=== PATIENT | male | born 1960 | race Caucasian/White ===

== ENCOUNTER 2017-02-05 10:44 | Inpatient (IN) | payer BC ==
[~2017-02-05] VITALS: Ht 177.8 cm; Wt 63.4 kg
--- NOTE | ~2017-02-05 | ER ---
[facility] AGE[facility] 56 Y [address] ROOM: [place] [address] LOCATION: [facility] ADMIT DATE: 02/05/2017 ER/Outpatient Report DISCHARGE DATE: FAMILY PHYSICIAN: Cristobal Simmons MD ATTENDING PHYSICIAN: WALLY HUNT V Time of Arrival: 1040 hours. Time of Evaluation: 1040 hours. CHIEF COMPLAINT: Shortness of breath. HISTORY OF PRESENT ILLNESS: The patient is a 56-year-old male who presents to the emergency department today with chief complaint of shortness of breath. The patient is brought in by EMS. He does have a history of stage IV lung cancer. He does report that he got short of breath last night. He has had fevers at home up to 101 as well as a dry cough. Denies any nausea or vomiting. No diarrhea or constipation. He denies any specific chest pain. No pain currently, 0/10 in severity. PAST MEDICAL HISTORY: 1. Stage IV lung cancer. 2. Coronary artery disease. 3. Moderate pulmonary hypertension. 4. Dyslipidemia. 5. Hypertension. PAST SURGICAL HISTORY: Left lung one thoracotomy. SOCIAL HISTORY: The patient does have a history of tobacco use, quit several years ago. Uses alcohol occasionally. Denies any illicit drug use. ALLERGIES: NO KNOWN DRUG ALLERGIES. MEDICATIONS: Please see list. PRIMARY CARE DOCTOR: Cristobal Simmons MD REVIEW OF SYSTEMS: [facility] AGE: 56 Y [address] ROOM: [place] [address] LOCATION: [facility] ADMIT DATE: 02/05/2017 ER/Outpatient Report DISCHARGE DATE: FAMILY PHYSICIAN: Cristobal Simmons MD ATTENDING PHYSICIAN: WALLY HUNT V All systems are reviewed by myself and are negative with the exception of those discussed in the HPI and past medical history. PHYSICAL EXAMINATION: VITAL SIGNS: Weight 67 kg. Blood pressure 155/95, pulse 128, respiratory rate 34, temperature 99.7, and oxygen saturation 87% on 8 L nebulized treatment. GENERAL: The patient is a 56-year-old male, who appears older than stated age in acute respiratory distress. HEENT: Normocephalic and atraumatic. Pupils are equal, round, and reactive to light. Oropharynx is clear. NECK: Supple. There is no nuchal rigidity. CARDIOVASCULAR: Tachycardic. RESPIRATORY: Lungs with diminished, diffusely with crackles noted bilaterally, and he is in acute respiratory distress. Tachypneic with retractions noted. ABDOMEN: Soft, nontender, and nondistended. No rebound, rigidity, or guarding. MUSCULOSKELETAL: The patient moves all 4 extremities. SKIN: Warm and dry. There are no rashes or lesions noted. LABORATORY DATA AND IMAGING STUDIES: Labs and x-rays are obtained. A one-view chest x-ray is obtained, does show evidence of pulmonary edema on the right. There is complete white out on the left which is consistent with previous study. EKG is obtained. It shows sinus tachycardia with a rate of 123, normal axis, normal interval, nonspecific. CMP is unremarkable except for potassium of 4.3, CO2 of 15, creatinine 1.6, and glucose of 232. Alkaline phosphatase is normal, AST is 43, and ALT is 25. CK is normal, CK-MB is 5.5, and troponin is 4.05. ProBNP is 20,260. Arterial blood gas shows 7.33/31/172/16.3/negative 8.5. Lactate is 3.9. D-dimer is 3.7. CBC: White blood cell count 28.5, hemoglobin 8.3, hematocrit 28.2, platelets are 666,000, and 2% bands. Coags are normal. Procalcitonin is 0.16. IMPRESSION: 1. Acute hypoxic respiratory failure. 2. Dense patchy parenchymal opacity, pneumonia versus congestive heart failure. 3. Sepsis. 4. Elevated glucose. 5. Critical care time of 44 minutes. 6. Initial visit. EMERGENCY DEPARTMENT COURSE: The patient was brought back to the examination room. Seen and evaluated by myself. IV was established. Laboratory analysis and imaging were obtained as PATIENT'S NAME: MAYTE TERRAZAS [facility] AGE: 56 Y [address] ROOM: [address] [place], [place] [address] LOCATION: [facility] ADMIT DATE: 02/05/2017 ER/Outpatient Report DISCHARGE DATE: FAMILY PHYSICIAN: Cristobal Simmons MD ATTENDING PHYSICIAN: WALLY HUNT V described above. The patient was given two DuoNeb breathing treatments en route by EMS. He is immediately placed on BiPAP with 12/5. He is given Solu- Medrol 125 mg IV. He is given 2 DuoNeb breathing treatments in line. The patient did require 13 mg of ketamine IV to assist with tolerating the BiPAP. He was given a gram of Tylenol p.o. He is given a liter of normal saline. Chest x-ray is returned. He is started on Zosyn 4.5 g IV as well as Levaquin 750 mg IV. The patient is reassessed multiple times throughout his ER stay. He is feeling much improved with the BiPAP. He still does have about four- word sentence dyspnea. I did discuss the results with the patient and his daughters who are at the bedside and did recommend admission to the hospital for further evaluation, treatment, and management. The patient is agreeable. I did discuss the case with Dr. Hunt of Hospitalist Service and he has seen and evaluated the patient down here in the emergency department. He has contacted Dr. Moody and discussed the case with Dr. Moody. She has seen and evaluated the patient down here in the emergency department as well. The patient does undergo an echocardiogram down here in the emergency department. With the patient's concern for possible congestive heart failure, careful fluid hydration was required. The patient did require cumulative critical care time of 44 minutes. This did include talking with the patient, talking with family, talking with multiple consults, inserting tests, reviewing tests as well as close monitoring of the patient with severe respiratory distress requiring BiPAP. I also did discuss the case with Dr. Cristobal Simmons, the patient's primary care doctor. He did request Hospitalist admission and will see the patient in the hospital as well. DISPOSITION: The patient is admitted under the care of the Hospitalist Service and Dr. Hunt in fair condition. DO LILLIANA LOZANO/sushilal /[id number] d: 02/05/177 t: 04/01/17 0854, OUTPATIENT REPORT
--- NOTE | ~2017-02-05 | CATH ---
Cardiac Diagnostic + PCI Report Demographics Patient Name NINI Wright Gender Male Date of 1960 Age 56 year(s) Patient Number [id number] Date of Study 02/05/2017 Visit Number [id number] Room Number G62[address] [place] [id number] Ht 177.8 cm Wt 61.5 kg Referring [facility] Primary Physician Physician Heidy HURTADO Performing [facility] Secondary Physician Physician Heidy HURTADO Diagnostic [facility] Assisting Physician Physician Heidy HURTADO Interventional [facility] Physician Outside Sales Executive Physician Heidy HURTADO Findings and Conclusions Diagnostic Findings and Conclusion Diffuse disease of entire ostial/proximal and mid RCA, ostial/prox about 70% and mid 90%. Lad prox/mid stents are patent, there is about 40% focal ISR in the mid stent, ostial LAD with focal 40% stenosis. Ramus lesion is about unchanged (ostial and proximal 80%). Diagnostic Recommendations The RCA is dominant and supplies the largest territory of myocardium PCI RCA and slightly worse compared to prior cath (The ramus lesion is unchanged). His overall prognosis is very poor given metastatic stage IV lung cancer. Given significantly elevated serial troponin from 4----->50, at this time, I will proceed with high risk intervention of RCA. LVEF on echo was 15-20%. Interventional Findings and Conclusion s/p Successful PCI of RCA with 3 AMITA , all overlaps postdilated using stent balloon. Initially 3.0/38 mid RCA stent placed, followed by another 3.0/20 stent in the ostial/proximal portion, several views obtained prior to deploying ostial RCA stent, however, there was no reflux of dye and pressures from guide were significantly damped with engaging the RCA, so I switched to diagnostic JR 4, 5Fr catheter and there was significant damping of pressure wave forms with minimal reflux of dye, so at this time, I placed another 3.0x8 mm promus premier stent proximal to previously placed stent to fully cover the ostium, after PCI of ostium there was good reflux and good waveform of pressures from guide catheter. HELLEN III flow at the end of the procedure. No acute complications in the cardiac slab puller. Interventional Recommendations Patient will be observed overnight. Hydration and followup creatinine. Patient has been instructed to not lift anything more than 5 pounds for 1 week. Aggressive risk factor management. Statin. ASA. Beta Nikunj. Antiplatelet will be given . Dual Anti-platelet therapy. Cardiac diet . Optimization of medical therapy as an inpatient. Will hold off on monique i, given contrast exposure as well as CKD stage III. His overall prognosis is very poor given h/o metastatic lung cancer. Procedure Description The patient was brought to the diagnostic cardiac catheterization-EP laboratory in the fasting, non-sedated state. Informed consent was obtained in the written and verbal form after the risks and benefits were explained. The patient had no further questions and agreed to proceed. The planned puncture-incision site(s) were shaved and prepped with ChloraPrep and draped in the usual sterile manner. Conscious sedation, supplemental oxygen, and pain control medications were delivered by a registered nurse under physician guidance. Surface ECG rhythm, blood pressure measurement, and pulse oximetry were monitored throughout the procedure. Arterial access. The access site was infiltrated with lidocaine. The vessel was entered with the Seldinger technique. A sheath was advanced into the vessel and used for catheter placement. Selective left coronary angiography. A catheter was advanced into the left coronary vessel ostium under Fluoroscopic guidance. Contrast was injected by hand. Images were obtained in multiple projections. Selective right coronary angiography. A catheter was advanced into the right coronary vessel ostium under fluoroscopic guidance. Contrast was injected by hand. Images were obtained in multiple projections. Stent Placement: A guiding catheter was used to intubate the vessel. A 0.14 wire was used to cross the lesion. A Drug Eluting Stent was placed. Post placement angiograms were performed. Arterial artery hemostasis was achieved. The patient was transferred to a regular nursing floor via cart accompanied by a nurse. The patient left the laboratory in stable condition. Diagnostic Cath Status: Emergency Interventional Cath Status: Emergency Procedure Procedure Type Diagnostic procedure:Angiography:, Coronary Angios PCI procedure:Drug Eluting Coronary Stent:, RCA Indications: Abnormal enzymes and NSTEMI. The procedure was explained in detail to the patient. Risks, complications and alternative treatments were reviewed. Written consent was obtained. Medications Reviewed with Patient prior to Procedure. Angiographic Findings Dominance: Right Cardiac Arteries and Lesion Findings LMCA: Normal (0% Stenosis).wnl LAD: Abnormal.mid 40% ISR ostial 40 and distal 50%There is a previous stent on Mid LAD Mid subsection showing focal ISR. There is a previous stent on Prox LAD Proximal subsection. Lesion on Mid LAD: Mid subsection.40% stenosis . LCx: Lesion on Mid CX: Mid subsection.30% stenosis . RCA: Abnormal.prox 70% and mid 90% Lesion on Mid RCA: Mid subsection.90% stenosis 66 mm length reduced to 0%. Pre procedure HELLEN II flow was noted. Post Procedure HELLEN III flow was present. The guidewire cross was successful.A good run off was present.The lesion was diagnosed as a high risk lesion.Culprit lesion. Devices used - Runthrough NS .014 x 180. Number of passes: 1. - Emerge Balloon 2.5 x 20. 2 inflation(s) to a max pressure of: 8 rose. - Promus Premier 3.0 x 38 Stent. 2 inflation(s) to a max pressure of: 12 rose. Lesion on Prox RCA: Proximal subsection.40% stenosis 66 mm length reduced to 0%. Pre procedure HELLEN II flow was noted. The guidewire cross was successful.A poor run off was present.The lesion was diagnosed as a high risk lesion.Culprit lesion. Devices used - Promus Premier 3.0 x 20 Stent. 2 inflation(s) to a max pressure of: 12 rose. - Runthrough NS .014 x 180. Number of passes: 1. - Promus Premier 3.0 x 8 Stent. 2 inflation(s) to a max pressure of: 12 rose. Ramus: Abnormal.80% unchanged from previous cath Coronary Tree Procedure Data Procedure Date Date: 02/05/2017Start: 05:03 PMEnd: 06:04 PM Entry Locations - Retrograde Percutaneous access was performed through the Right Radial artery (Primary location). A 6 Fr sheath was inserted. Hemostasis was successfully obtained using Mechanical Compression. Closure Comments: r band with 14 cc air in band by geovanna. Procedure Medications Order and Administration + + + + + !Time !Medication !Dosage !Route ! + + + + + !02/05/2017 05:00 PM !Versed !1 mg !I.V. ! + + + + + !02/05/2017 05:01 PM !Fentanyl !25 mcg !I.V. ! + + + + + !02/05/2017 05:04 PM !Radial Verapamil !2.5 mg ! ! + + + + + !02/05/2017 05:16 PM !Heparin (ACC_3) !3000 units !I.V. bolus ! + + + + + !02/05/2017 05:17 PM !Fentanyl !25 mcg !I.V. ! + + + + + !02/05/2017 05:19 PM !Heparin (ACC_3) !2000 units !I.V. bolus ! + + + + + !02/05/2017 05:37 PM !Heparin (ACC_3) ! !I.V. drip ! + + + + + !02/05/2017 05:43 PM !Fentanyl !25 mcg !I.V. ! + + + + + Devices Used - A5 Fr. BS JR 4 Diag. Catheterwas used for:Right coronary angiography. - A6 Fr. XB 3.5 Guide Catheterwas used for:Left coronary angiography. - A6 Fr. JR4 Guide Catheterwas used for:RCA Intervention. - A5 Fr. BS JR 4 Diag. Catheterwas used for:Right coronary angiography. - A6 Fr. JR4 Guide Catheterwas used for:RCA Intervention. Contrast Material - Isovue [id number] ml Fluoroscopy Time: Diagnostic: 16:30 minutes. Total: 16:30 minutes. Fluoroscopy Dose: Diagnostic: 1347 mGy. Total: 1347 mGy. Estimated Blood Loss: 20 ml. Additional [facility] PCI Information PCI Indication:Immediate PCI for STEMI. Medical History Allergies - No known allergies. Risk Factors The patient risk factors include:prior PCI on 06/23/2016;previous vascular surgery;physical activity, treated hypercholesterolemia, treated hypertension, family history of premature CAD, last creatinine: 1.6 mg/dl, creatinine clearance: 43.78 ml/min, dyslipidemia, former tobacco use, prior heart failure and prior ND . Admission Data Admission Date: 02/05/2017 Admission Time: 12:57 PM Admit Source: Emergency department Insurance Payors: Private health insurance. Admission Medications + +------+-----+---------+---------+ + + !Medication !Dosage!Times!Last !Last !Administered !Comments ! ! ! !Per !Delivery !Delivery ! ! ! ! ! !Day !Date !Time ! ! ! + +------+-----+---------+---------+ + + !Aspirin (any) ! ! ! ! ! ! ! + +------+-----+---------+---------+ + + !Unfractionated ! ! ! ! ! ! ! !Heparin (any) ! ! ! ! ! ! ! + +------+-----+---------+---------+ + + Clinical Evaluation Leading to Procedure - The patient's CAD presentation was assessed as: Non-STEMI. - The patient's anginal syndrome during the past two weeks was assessed as: Class II according to the [place] Cardiovascular Society Classification System (CCS). Anti-anginal medications were prescribed during the past two weeks. The medication is: Beta Blockers. - The patient has been in a state of heart failure within the past two weeks. - The patient's heart failure status was assessed as NYHA Class IV, with CHF symptoms of BRUNSON. - The reason for the patient's lab rn visit is evaluation of cardiomyopathy and/or evaluation of left ventricular systolic dysfunction. VA LV function assessed . Ejection Fraction - Method: Echocardiography. EF%: 55. LVA Segment Contractility 1 - Normal 3 - Mild 5 - Severe 7 - Dyskinesis hypokinesis hypokinesis 2 - 4 - Moderate 6 - Akinesis 8 - Aneurysm Hypokinesis hypokinesis Snapshots Hemodynamics Condition: Rest O2 Consumption: Estimated: 228.59Heart Rate: 100 bpm Pressures (mmHg) +-----+ + !Site !Pressure ! +-----+ + !AO !99/58 (75) ! +-----+ + !AO !60/36 (45) ! +-----+ + !AO !71/42 (55) ! +-----+ + Shunts Oxygen Values O2 Capacity 112.88 O2 Consumption 228.59 Signatures dtt: HEIDY ZAMBRANO dtd: 02/05/17 1703 Physician Self Edit
--- NOTE | ~2017-02-05 | DS ---
PATIENT'S NAME: MAYTE TERRAZAS [facility] AGE: 56 Y [address] ROOM: [place] [address] LOCATION: [facility] ADMIT DATE: 02/05/2017 Discharge Summary DISCHARGE DATE: 02/09/2017 FAMILY PHYSICIAN: Cristobal Simmons MD ATTENDING PHYSICIAN: Isra Ibrahim V ANTICIPATED DATE OF DISCHARGE: 02/09/2017. PRIMARY DIAGNOSES: For this hospitalization are, 1. Acute systolic congestive heart failure. 2. Acute hypoxic respiratory failure due to the above. 3. Mge-KH-hbfttyb elevation myocardial infarction. CHRONIC DIAGNOSES: 1. Stage IV lung cancer. 2. History of coronary artery disease with prior stenting. PROCEDURES PERFORMED: Cardiac catheterization with placement of drug-eluting stents to the right coronary artery. CONSULTANTS: Who participated in the patient's care are [facility] and [facility]. SUMMARY OF HOSPITALIZATION: This is a 56-year-old male, who presented to the hospital with rapidly progressing dyspnea. The patient has a past medical history of lung cancer and is currently on chemotherapy. On admission, the patient had acute hypoxic respiratory failure with pulmonary edema of both lungs. He required BiPAP support. Initially, his troponin was 4, but subsequently it went up to 50. Echocardiogram showed ejection fraction of 15% to 20%, which was a new finding for this patient. He was taken to the wood preserving plant laborer emergently and was found to have disease of the right coronary artery. He has previously been stented in his LAD and those stents were patent. He received drug-eluting stents to the right coronary artery. He was also placed on broad-spectrum antibiotics as he did have significant leukocytosis and it was questionable if the patient had a concurrent pneumonia as the triggering underlying etiology for his presentation. He was also placed on stress dose steroids. Subsequent to his catheterization, his oxygen requirements decreased, and he felt better. It should be noted that at no point did the patient have any chest pain which was consistent with his prior non-STEMI. He was diuresed and tapered off antibiotics and did very well with physical therapy and occupational therapy. PATIENT'S NAME: MAYTE TERRAZAS [facility] AGE: 56 Y [address] ROOM: [place] [address] LOCATION: [facility] ADMIT DATE: 02/05/2017 Discharge Summary DISCHARGE DATE: 02/09/2017 FAMILY PHYSICIAN: Cristobal Simmons MD ATTENDING PHYSICIAN: Isra Ibrahim V He was fitted for a LifeVest due to his cardiomyopathy. It should be noted that it is unclear if his cardiomyopathy was caused by coronary artery disease, though most likely it was due to his chemotherapy, which has heart failure as a known adverse reaction. Today, the patient feels well, and he will be sent home. He will be continued on his prior cardiac regimen, but we will add lisinopril and Lasix to his regimen at home. It should be noted that the patient was on mild doses of hydrocortisone at home for approximately last month, and he has been on stress dose of hydrocortisone here. We will send him with a gentle prednisone taper and have him follow up with his oncologist, Dr. Kristie Santana for additional steroid decisions. The patient is also to follow up with the primary care provider, Dr. Cristobal Simmons and [facility], all these appointments will be made within 1 week. While the patient initially was treated for pneumonia/sepsis, he was not found to have any infectious focus. DISCHARGE MEDICATIONS: 1. Aspirin 81 mg continued. 2. Atorvastatin 80 mg continued. 3. Furosemide 40 mg daily, new med. 4. Lisinopril 5 mg daily, new med. 5. Magnesium oxide 400 mg continued. 6. Metoprolol 37.5 mg b.i.d. continued. 7. Prednisone 10 mg for 3 days and then 5 mg daily until seen by his oncologist. 8. Dexamethasone with chemotherapy. 9. Continue Florastor for 3 days b.i.d. 10. Brilinta 90 mg twice a day continued. 11. Loperamide continued. 12. Compazine continued. 13. Hydrocortisone discontinued. Time dedicated to this patient's encounter is 35 minutes. MD VU AGUILERA/rylee /[id number] CC: Cristobal Simmons MD PATIENT'S NAME: MAYTE TERRAZAS [facility] AGE: 56 Y [address] ROOM: [place] [address] [facility] ADMIT DATE: 02/05/2017 Discharge Summary DISCHARGE DATE: 02/09/2017 FAMILY PHYSICIAN: Cristobal Simmons MD ATTENDING PHYSICIAN: Isra Ibrahim MD Anuradha Tunuguntla, MD d: 02/10/17 0543 t: 02/25/17 0518, DISCHARGE SUMMARY
--- NOTE | ~2017-02-05 | CON ---
PATIENT'S NAME: JOHN PAUL ALLEN [facility] AGE: 56 Y [address] ROOM: [address] [address] LOCATION: GPCU ADMIT DATE: 02/05/2017 Consultation DISCHARGE DATE: FAMILY PHYSICIAN: Cristobal Simmons MD ATTENDING PHYSICIAN: WALLY HUNT V REFERRING PHYSICIAN: Kristie Santana MD CONSULTATION NOTE REQUESTING PHYSICIAN: This is a consult to Dr. Wally Hunt. 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 HISTORY OF PRESENT ILLNESS: The history of the present illness was obtained from Mr. Allen, who is a good historian; from his hospitalist, Dr. Hunt; from review of the [facility] note of 02/02/2017, which is appended to the chart; from earlier [facility] notes, and the current and old [facility] record. Mr. Allen is currently on day 27 of his third cycle of docetaxel and ramucirumab for locally advanced, stage IV, ldq-faqfe-jfji carcinoma of the lung (squamous cell type). On 02/02/2017, he was seen by Dr. Santana at [facility]. The patient lived alone. He could drive. He was on no formal or informal exercise program. He could do housework. He could vacuum. He had no formal or informal rehabilitation program. 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 The patient reported no dyspnea on exertion walking from the parking lot to [employer] but he developed mild fatigue. He had a mild nonproductive cough. The patient had been placed on steroids and felt his energy level improved by 02/05/2016 though he experienced some insomnia. That evening he developed dyspnea at rest and was unable to sleep the entire night. He sat in a recliner. He was hyperventilating. He reported he developed a fever of 101 degrees (noted in the emergency) room which surprised him. The patient reported to the emergency room and was placed on BiPAP which immediately controlled his symptoms. Mr. Allen was evaluated in the emergency room by Dr. Shadi Torres. The urinalysis was unremarkable. The white count was 28,500 with 67 segs, 2 bands, 23 lymphocytes, and 6 monos. The patient had 1 myelocyte, 1 PATIENT'S NAME: JOHN PAUL ALLEN [facility] AGE: 56 Y [address] ROOM: [address] [place], [place] [address] LOCATION: GPCU ADMIT DATE: 02/05/2017 Consultation DISCHARGE DATE: FAMILY PHYSICIAN: Cristobal Simmons MD ATTENDING PHYSICIAN: WALLY HUNT V metamyelocyte, and 1 nucleated red blood cell. The hemoglobin was 8.3 g/dL, MCV 97, and the platelets were 666,000. At the time of this dictation, the white count has fallen to 15,600, with 89 segs and 5 bands. The hemoglobin is 8.6, the MCV is 90, and the platelets are 234,000. The patient's chemistries were compatible with a jht-XF-ocdiyyvol MT. The CK was 5.5 ng/mL, the troponin was 4.05 ng/mL upon admission. The proBNP was 20,260 pg/mL. The estimated GFR was 45 mL/m. The CK and troponin both murray. The liver function tests were unremarkable except for slightly elevated AST of 68 international units/L. The chest x-ray revealed a dense patchy parenchymal opacity throughout the right lung, new since 06/23/2016 and persistent dense parenchymal opacity in the upper lobe of the left lung with no definite pleural effusion or pneumothorax. A right-sided implanted vascular access device was present. Dr. Moody saw the patient and recommended a coronary artery catheterization study. This was performed on 02/05/2017 and revealed diffuse disease of the entire ostial/proximal and mid right coronary artery, ostial/proximal about 70%, and mid 90%. The LAD proximal/mid stents were patent. There was only 40% focal ISR in the mid stent, ostial LAD with focal 40% stenosis. The ramus lesion was about unchanged. Dr. Moody recommended a PCI of the right coronary artery which was performed using the stent balloon. Dr. Moody initially placed a right coronary artery stent. She placed another PREMIER stent proximally to the previously placed stent and fully cover the ostium, and after that there was good reflux and good waveform. The patient's dyspnea resolved on BiPAP in the emergency room and he is feeling better now. Mr. Allen has a locally advanced rhd-bgvuo-ugwv carcinoma (squamous cell carcinoma) arising in the upper lobe of the left lung. On 02/06/2015, the patient underwent a left thoracotomy, but this was aborted apparently due to pericardial involvement (the procedure was done at the [facility]). On 05/07/2015, a course of nab paclitaxel plus carboplatin in and concurrent radiation was completed. On 05/29/2015, the patient was placed on durvalumab ([id number]) as part of a clinical trial, the "PACIFIC study" of adjuvant checkpoint inhibitors in patients who finished chemotherapy and radiation with curative intent. In February 2016, progressive disease was noted. Starting 04/07/2016, six cycles of gemcitabine and cisplatin and necitumumab were administered, and on 09/02/2016, necitumumab was continued alone until 11/10. On 11/17/2016, docetaxel and ramucirumab were initiated. As noted, the patient was due for the 3rd cycle of docetaxel and ramucirumab on 02/02/2017, but the third cycle was held because of the patient's fatigue. PATIENT'S NAME: JOHN PAUL ALLEN [facility] AGE: 56 Y [address] ROOM: [place] [address] [facility] ADMIT DATE: 02/05/2017 Consultation DISCHARGE DATE: FAMILY PHYSICIAN: Cristobal Simmons MD ATTENDING PHYSICIAN: WALLY HUNT V ACTIVE MEDICAL PROBLEMS, CHRONIC AND DIAGNOSED: 1. Hypercholesterolemia noted in 2004. 2. Essential arterial hypertension noted in 2015, resolved. 3. Tobacco use. The patient smoked 1-1/2 pack per day for 25 years, but has abstained from tobacco since 2001. 4. Atherosclerotic heart disease leading to an xav-BK-lxifrtlzg MT on 06/23/2016. 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 5. Moderate pulmonary hypertension. 6. Adrenal insufficiency. 7. Ischemic cardiomyopathy. The LVEF was 15-20%. There was severe hypokinesis of the anterior, distal, inferior, and lateral wall upon admission. 8. Mild diastolic dysfunction with septal LVH and mild mitral regurgitation. ACUTE MEDICAL ILLNESSES (RESOLVED)PAST SURGERIES, INJURIES: 1. In 2016, non-STEMI. 2. In 2014 - aborted left thoracotomy. 3. Knee arthroscopic. 4. Sinus surgery. MEDICATIONS: Upon admission: 1. ASA 81 mg daily. 2. Atorvastatin 80 mg daily. 3. Dexamethasone around the time of chemotherapy. 4. Hydrocortisone 40 mg p.o. q.a.m. and 10 mg p.o. at bedtime. 5. Loperamide. 6. Magnesium oxide 400 mg daily. 7. Metoprolol 25 mg daily. ADVERSE REACTIONS TO MEDICATIONS, TRANSFUSIONS, ALLERGIES: 1. No known drug allergies. 2. The patient had 2 units of packed red blood cells here. The patient has had packed red blood cell transfusions on three occasions over the past 6 months. TOBACCO: 1-1/2 pack per day for 25 years, abstained since 2001. ALCOHOL: Wine with dinner. A beer or two when watching sports events. He has restricted his alcohol intake now. CAFFEINE: 1 cup of coffee per day. Occasional iced tea. IMMUNIZATIONS: Negative flu, negative Pneumovax, which will be given here. Negative tetanus. Negative varicella zoster virus. PATIENT'S NAME: JOHN PAUL ALLEN [facility] AGE: 56 Y [address] ROOM: [place] [address] [facility] ADMIT DATE: 02/05/2017 Consultation DISCHARGE DATE: FAMILY PHYSICIAN: Cristobal Simmons MD ATTENDING PHYSICIAN: WALLY HUNT V FAMILY HISTORY: Maternal grandfather of a colon or prostate cancer at age 83. SOCIAL HISTORY: The patient was born in [place], [place], but attended high school and was a [employer] in [place], [place] until his ritu year. He returned to [place] and graduated from [employer]. The patient attended [employer] as an undergraduate and law school. 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 He has been employed in [employer] since November 1986. The patient is . He has three daughters one age 22 in [place], [place], and a 19-year-old, who is a student at [employer], and a 16-year-old, who is at [employer]. He is a member of the [employer]. REVIEW OF SYMPTOMS: Negative other than those noted in the history of the present illness. PHYSICAL EXAMINATION: VITAL SIGNS: Pulse 108 and regular, blood pressure 135/85, respiratory rate 18, temperature 97.6, height 70 inches, and weight 61.5 kg (136 pounds). BMI 19.4 kg/m2. GENERAL APPEARANCE: Well-developed, underweight, 56-year-old, male, in no acute distress with no tachypnea. HEENT: Unremarkable. LYMPH NODES: None palpable. NECK: Without JVD or carotid bruit. CHEST: Decreased breath sounds in the upper left chest and crackles throughout, and in the lower portion of the right and left lung. CARDIOVASCULAR: Regular rhythm with no murmurs, bruits, or adventitious sounds. There is a rub. CHEST WALL: The patient has an implanted vascular access device in the right infraclavicular area. ABDOMEN: No masses, tenderness, or megaly. GENITAL AND RECTAL: Taylor catheter in place. EXTREMITIES: Trace peripheral edema in the lower extremities. Pulses 2+ in upper extremities. 1+ in the lower extremities. NEUROLOGIC: The patient moves all 4 extremities and is alert and responsive. It is grossly intact. IMPRESSION: 1. A 56-year-old male with stage IV (due to locally advanced pericardial involvement) squamous cell carcinoma, who had not been thriving on docetaxel plus ramucirumab, but had no progressive disease on restaging CAT scan after 2 cycles. 2. Yky-WC-iuujguiwp myocardial infarction due to atherosclerotic heart PATIENT'S NAME: NINI JOHN PAUL Kyle [facility] AGE: 56 Y [address] ROOM: [address] [place] [id number] LOC[facility]: [facility] ADMIT DATE: 02/05/2017 Consultation DISCHARGE DATE: FAMILY PHYSICIAN: Cristobal Simmons MD ATTENDING PHYSICIAN: WALLY HUNT V disease involving the right coronary artery leading to congestive heart failure (better). 3. The pronounced leukocytosis, thrombocytosis, and anemia are probably due to stress, steroids and possibly a bacterial pneumonia. 4. Anemia of chronic inflammation aggravated by blood loss from the cardiac cath. RECOMMEND: Diagnostic: 1. No further tests. Treatment: 1. Empiric antibiotics for three days are reasonable. The patient is currently on levofloxacin, vancomycin, and cefepime. If the cultures are negative, we could discontinue therapy at three days. 2. Transfuse packed red blood cells to keep the hemoglobin greater than 7. 3. Ramucirumab will probably need to be held in the future. There is a strong relative contraindication employing ramucirumab when the patient has experienced a concurrent cerebrovascular or cardiovascular complication. Patient education: 1. Discussed the above. MD ERON LOWRY/rylee /[id number] d: 02/07/172124 t: 02/08/17 1325, CONSULTATION REPORT
--- NOTE | ~2017-02-05 | CON ---
PATIENT'S NAME: MAYTE ALLEN [facility] AGE: 56 Y [address] ROOM: [address] [place], [place] [address] LOCATION: [facility] ADMIT DATE: 02/05/2017 Consultation DISCHARGE DATE: FAMILY PHYSICIAN: Cristobal Simmons MD ATTENDING PHYSICIAN: WALLY HNUT V DATE OF CONSULTATION: 02/05/2017 REFERRING PHYSICIAN: Kristie Santana MD REASON FOR CONSULTATION: Elevated troponin. HISTORY OF PRESENTING ILLNESS: The patient is a very pleasant 56-year-old man, who unfortunately was diagnosed with advanced recurrent lung cancer stage IV and he has been getting chemotherapy, several cycles under the direction of Dr. Santana. The patient has been battling this for the past few years and reports that he has had several cycles of chemotherapy for this. He is not sure about the prognosis for this and at this time, he chooses to be a full code. The patient also has coronary artery disease status post acute coronary syndrome, status post emergent cardiac cath that revealed a completely obstructed mid LAD artery and he received 2 stents to that in June 2016. He did have established diagnosis of stage IV lung cancer at that time. He did have residual coronary artery disease in the RCA about 80%. It is quite diffusely diseased from the proximal to mid portion. At that time, given his comorbidities, it was thought medical therapy would be the best option for that at that time. He has been compliant with his dual antiplatelet therapy. For the past few weeks, he has been having progressively worsening shortness of breath and dyspnea on exertion. He has received a course of antibiotics for that, completed a course of Levaquin that Dr. Santana prescribed for him. More recently, his shortness of breath has been getting progressively worse and he was started on dexamethasone to help alleviate his symptoms. He was unable to sleep all night due to difficulty breathing. He does not have any chest discomfort like he did when he had with the episode of acute coronary syndrome. His main issue at this time is difficulty breathing. He had to sit up all night and found it quite difficult to catch his breath. He does not have any lower extremity edema or significant weight gain in the recent past. No fever or chills. No stroke-like symptoms. No joint aches. No changes in his vision or speech. No recent rashes. PATIENT'S NAME: MAYTE ALLEN [facility] AGE: 56 Y [address] ROOM: [address] [place], [place] [address] LOCATION: GICU ADMIT DATE: 02/05/2017 Consultation DISCHARGE DATE: FAMILY PHYSICIAN: Cristobal Simmons MD ATTENDING PHYSICIAN: WALLY HUNT V REVIEW OF SYSTEMS: A 10-point review of systems discussed with patient. Pertinent positives and negatives mentioned in the history of presenting illness. PAST MEDICAL HISTORY: 1. Coronary artery disease status post ACS with recent stenting of his LAD using 2 drug-eluting stents in June 2016. His LAD was completely obstructed at that time. Residual 80% stenosis in the proximal mid RCA that is quite diffusely diseased. 2. Hypercholesterolemia. 3. Hypertension. 4. Lung cancer. SOCIAL HISTORY: He smoked, but quit about 15 years ago. He is . He has 2 children. 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 FAMILY HISTORY: His father had coronary artery disease and stroke. He had bypass surgery in his 60s. PHYSICAL EXAMINATION: GENERAL: The patient is in moderate distress. He is using his accessory muscles of respiration. He is currently on BiPAP at 40%. VITAL SIGNS: Heart rate sinus tachycardia in the 110 to 120 range and blood pressure 188/70. NECK: No carotid bruits. No JVD. Neck is supple. HEENT: Eyes: No xanthelasma. Sclerae white. Mucous membranes moist. SKIN: No jaundice. Warm and dry. HEART: S1 and S2. Regular rate and rhythm. No S3 or gallop. No murmurs. LUNGS: Decreased breath sounds in the entire left side. Right side with decreased breath sounds in the base, in the mid portion of the lung. No significant wheezing. ABDOMEN: Soft. Nontender. Bowel sounds positive. LOWER EXTREMITIES: No lower extremity edema. MUSCULOSKELETAL: Grossly normal. No swelling of joints noted. EKG showed sinus tachycardia with nonspecific ST or T-wave changes. No significant ST depressions or ST elevation noted on ECG. CARDIAC STUDIES: Cardiac cath done in June 2016, status post PCI of the LAD with 2 drug- eluting stents in the mid to distal portion and 80% stenosis in the proximal to mid RCA. Echocardiogram shows normal LV size and systolic function, 55% to 60%. There was lateral wall hypokinesis and mild anterior wall hypokinesis. PATIENT'S NAME: MAYTE ALLEN [facility] AGE: 56 Y [address] ROOM: [address] [place] [address] LOCATION: GICU ADMIT DATE: 02/05/2017 Consultation DISCHARGE DATE: FAMILY PHYSICIAN: Cristobal Simmons MD ATTENDING PHYSICIAN: WALLY HUNT V No significant valvular disease that was reported. CHEST X-RAY: The entire left side has significant opacities throughout as well as the right side as well, suspicious for ARDS. LABORATORY DATA: PH of 7.33, pCO2 of 31, pO2 of 172, bicarb 16, CO2 content 17, percent saturation 99% on FiO2 of 60%. Lactate 3.9. Sodium 136, potassium 5.3, chloride 106, CO2 of 15, BUN 24, creatinine 1.6, alkaline phosphatase 92, AST 43, ALT 25, estimated GFR 45, magnesium 2.5, VLDL 13, HDL 60, CPK 173, CK-MB is slightly elevated at 5.5, troponin is elevated at 4.05, proBNP is 20,260, D- dimer is also elevated at 1.9. WBC count is 28.5, H and H are 8.3 and 28.2, and platelets are 666. His previous WBC count on June 23 was 8.9, H and H had dropped some from 9.7, and his platelets were 499 on June 23, 2016. INR is 1. IMPRESSION AND PLAN: 1. Elevated troponin, likely secondary to his underlying pulmonary issues, suspicious for sepsis and acute respiratory distress syndrome. Will trend serial isoenzymes and ecg's and reevaluate for cardiac symptoms closely. 2. History of coronary artery disease s/p PCI of LAD in setting of ACS and residual CAD in ramus and RCA. He did have chest pain with his prior acute coronary syndrome, he denies CP at this time. CPK is within normal limits, however, troponin is elevated at 4.05 and I do not think this is from acute coronary syndrome given presentation. We will get serial cardiac iso enzymes and evaluate closely for symptoms of chest pain and then take him to the cardiac director of cath lab if depending on the trend of cardiac isoenzymes or chest discomfort or ECG changes suggestive of ischemia or injury. At this time, given possibel sepsis, elevated white count, suspicious ARDS picture on chest x-ray, as well as chronic renal insufficiency, I do not think it is in the patient's best interest to take him to the cardiac director of cath lab. 3. Chronic kidney disease. His creatinine was 1.7 in June 2016. 4. Shortness of breath. This is likely secondary to acute respiratory distress syndrome and sepsis and chest x-ray not significantly suggestive of congestive heart failure. I will get another echocardiogram to ensure his left ventricular systolic function has not deteriorated and no new valvular abnormalities. We will evaluate closely for MR as well as IVC. But at this time given the picture of sepsis, I do agree with continuing IV fluids cautiously and monitoring his I's and O's closely. 5. Chronic kidney disease. His last creatinine was 1.7 after the catheterization, before that was 1. We will keep a close eye on it and avoid nephrotoxins. In summary, I think his symptoms are very suggestive of underlying pulmonary issues and not really secondary to cardiac etiology. The PATIENT'S NAME: MAYTE ALLEN [facility] AGE: 56 Y [address] ROOM: [place] [address] LOCATION: [facility] ADMIT DATE: 02/05/2017 Consultation DISCHARGE DATE: FAMILY PHYSICIAN: Cristobal Simmons MD ATTENDING PHYSICIAN: WALLY HUNT V elevated proBNP and troponin likely secondary to his ARDS/sepsis. However, given known extensive CAD, will monitor him closely and if any e/o clinical deterioration after w/u with echo, repeat labs, will take him to director of cath lab if necessary. Depending on his I's and O's and creatinine as well as clinical status, we will decide regarding giving him diuretics if necessary. Please continue dual antiplatelet therapy with aspirin and Brilinta since it has not been 1 year, post acute coronary syndrome is possible. Zosyn and Solu- Medrol will have high sodium load, so we need to keep a close eye on his volume status and diurese him as necessary. I think his overall prognosis given his lung cancer stage IV with recurrence portends a very poor prognosis. Recommend speaking with Dr. Santana regarding his prognosis and code status, etc. Thank you very much for allowing us to participate in the care of Mr. Allen. BINH MD DINORAH ZAMBRANO/sushilal /[id number] d: 02/05/17 1945 t: 02/08/17 1004, CONSULTATION REPORT
--- NOTE | ~2017-02-05 | ECHO ---
Transthoracic Echocardiography Report (TTE) Demographics Patient Name MAYTE TERRAZAS Date of Study 02/05/2017 Patient Number [id number] Visit Number [id number] Date of 1960 Room Number G[address]15 Gender Male Number Age 56 year(s) Referring Troy eHck MD Wool Spotter Gricel Pan RVT Physician Patrice Moody MD Physician Interpreting Joao Moody Pick Pulling Machine Tender Physician Supervising Ordering Joao Moody MD/MLP Physician Nurse Stress Tail Worker Conclusions Summary Severely reduced LV systolic function. The estimated left ventricular ejection fraction is 15-20%. Definity contrast agent used to visualize the endocardial borders better. The entire apex, mid to distal inferoseptum, anterior wall is severely hypokinetic. The mid to distal inferolateral wall is also severely hypokinetic. Mild diastolic dysfunction. Mild septal left ventricular hypertrophy. The LA is mildly dilated. Mild mitral regurgitation by color Doppler. The pulmonary pressure (RVSP) is 37 mmHg. IVC measures 1.,12 cm with inspiratory collapse. Procedure Type of Study TTE procedure:Echo with Contrast. Procedure Date Date: 02/05/2017 Start: 01:54 PM Study Location: ER Technical Quality: Adequate visualization Indications:Chest pain. Appropriate Use Criteria: 9 Patient Status: STAT HR: 152 bpm BP: 103/68 mmHg Allergies - No known allergies. M-Mode/2D Measurements LV Diastolic Dimension: 5.03 cm LV Systolic Dimension: 4.08 cm LV Septum Diastolic: 1.28 cm LV PW Diastolic: 1.04 cm AO Root Dimension: 2.1 cm Cardiac Output: 6.25 l/min AV Cusp Separation: 2.2 cm RV Diastolic Dimension: 2.46 cm LA volume: 53 ml LVOT: 2 cm RV Base: 2.14 cm LVOT VTI: 13.1 cm RV Mid: 2.28 cm LV Stroke volume: 41.13 ml TAPSE: 1.87 cm TDI-S': 15 cm/s Doppler Measurements AV Peak Velocity: 1.31 m/s MV Peak E-Wave: 0.63 m/s AV Peak Gradient: 6.86 mmHg AV Mean Gradient: 4 mmHg MV P1/2t: 68 msec LVOT Peak Velocity: 0.93 m/s TR Velocity:2.62 m/s PV Peak Velocity: 0.8 m/s TR Gradient:27.46 mmHg PV Peak Gradient: 2.55 mmHg Estimated RAP:10 mmHg Estimated PASP: 37.46 mmHg Estimated RVSP: 37 mmHg A' Septal Velocity: 0.11 m/s E' Septal Velocity: 0.05 m/s A' Lateral Velocity: 0.06 m/s E' Lateral Velocity: 0.04 m/s Findings Left Ventricle Mild septal left ventricular hypertrophy. Diastolic assessment reveals Grade I diastolic dysfunction. Right Ventricle Normal right ventricle structure and function. Left Atrium The left atrium is mildly dilated. Right Atrium Normal right atrial size. IVC measures 1.,12 cm with inspiratory collapse. Mitral Valve Mild mitral annular calcification. Mild calcification of the mitral valve. Mild mitral regurgitation by color Doppler. Aortic Valve Normal aortic valve structure and function. Tricuspid Valve Mild tricuspid regurgitation by color Doppler. The pulmonary pressure (RVSP) is 37 mmHg. Pulmonic Valve Mild pulmonic valve regurgitation by color Doppler. Pericardial Effusion No evidence of pericardial effusion. Miscellaneous Visualized portions of the aortic root and ascending aorta appear normal in size. Pleural Effusion No evidence of pleural effusion. Signature dtt: BINH ZAMBRANO dtd: 02/05/17 1354 Physician Self Edit
--- NOTE | ~2017-02-05 | HP ---
PATIENT'S NAME: MAYTE [facility]RA[facility]AS [facility] AGE: 56 Y [address] ROOM: [place] [address] LOCATION: GICU ADMIT DATE: 02/05/2017 History & Physical DISCHARGE DATE: FAMILY PHYSICIAN: Cristobal Simmons MD ATTENDING PHYSICIAN: WALLY HUNT V DATE OF SERVICE: CHIEF COMPLAINT: Shortness of breath. HISTORY OF PRESENT ILLNESS: The patient is a 56-year-old male with past medical history most significant for stage IV lung cancer, currently on chemotherapy. He also has a past medical history of acute coronary syndrome status post two drug-eluting stents to LAD done 8 months ago. The patient presented to the ER today with complaints of worsening shortness of breath, and orthopnea. He also endorses some fevers and chills. A workup in the ER revealed a chest x-ray with diffuse right-sided infiltrates, hypoxia, tachycardia, borderline blood pressure, and leukocytosis with the troponin of 4, and normal cardiac enzymes. The patient does not endorse any chest pain that was consistent with the symptoms that he experienced, when he had the acute coronary syndrome last year. He does, however, endorse some right-sided chest pain which is pleuritic in nature. Initially, the patient is quite hypoxic in 80s and tachypneic, and he was placed on a BiPAP, and now feels somewhat better though still quite tachypneic. REVIEW OF SYSTEMS: Negative aside from detail positives mentioned in the history of present illness. PAST MEDICAL HISTORY: 1. Stage IV lung cancer with tumor adhering to the heart. This was treated with radiation and chemotherapy. This also metastasized to the right side of the chest, but apparently the metastasis has been successfully treated. The patient is currently getting chemotherapy, but he is not sure with what. 2. Coronary artery disease, status post stenting. PATIENT'S NAME: MAYTE TERRAZAS [facility] AGE: 56 Y [address] ROOM: [place] [address] LOCATION: GICU ADMIT DATE: 02/05/2017 History & Physical DISCHARGE DATE: FAMILY PHYSICIAN: Cristobal Simmons MD ATTENDING PHYSICIAN: WALLY HUNT V SOCIAL HISTORY: Significant for approximately 20 pack years of tobacco use. The patient having quit approximately 15 years ago. CURRENT MEDICATIONS: 1. Decadron 4 mg b.i.d. 2. Levaquin. 3. Oxycodone. 4. Atorvastatin. 5. Hydrocortisone. 6. Brilinta. 7. Aspirin. 8. As well as metoprolol and magnesium. FAMILY HISTORY: Reviewed and is noncontributory due to known underlying etiology for his presentation. PHYSICAL EXAMINATION: VITAL SIGNS: Blood pressure at the time of my visit is 110s/80s, heart rate is 110s. He is saturating 97% on 40% FiO2 of BiPAP. Temperature is 99.7, respirations 38 to 40. GENERAL: Appears chronically ill, middle-aged male, in no acute distress. NEUROLOGICAL: Significant for preserved mentation and no focal deficits. HEENT: Eye exam shows pupils are equal and reactive to light. LYMPHATIC: Shows no cervical lymphadenopathy. ENDOCRINE: Shows no thyromegaly. LUNGS: Reveals diminished breath sounds on the left and coarse breath sounds with crackles and rhonchi on the right. HEART: Reveals regular tachycardia with no appreciable murmurs, gallops, or rubs. There is no lower extremity edema. GASTROINTESTINAL: Reveals abdomen is soft, nontender, and nondistended. GENITOURINARY: Reveals no costovertebral angle tenderness. VASCULAR: Reveals 2+ pedal pulses. MUSCULOSKELETAL: Shows no muscle or joint abnormalities. SKIN: Warm and dry. PSYCHIATRIC: Reveals appropriate mood, cognition, and affect. LABORATORY DATA AND IMAGING STUDIES: Laboratory results from the ER significant for a pH of 7.33, pCO2 of 31, and pO2 of 173 on 60% FiO2. Potassium is 5.3, anion gap is 15, and bicarbonate is 15. Lactate is 3.9. CK-MB is 5.5. Troponin is 4.0. ProBNP is 20,000. White count is 20.5, hemoglobin is 8.3, and platelets are 6,666. Bands are 2%. Chest x-ray shows diffuse right-sided infiltrate with poorly visualized left hemithorax. EKG shows sinus tachycardia, 119 beats per minute without PATIENT'S NAME: MAYTE TERRAZAS [facility] AGE: 56 Y [address] ROOM: [address] [id number] LOCATION: [facility] ADMIT DATE: 02/05/2017 History & Physical DISCHARGE DATE: FAMILY PHYSICIAN: Cristobal Simmons MD ATTENDING PHYSICIAN: WALLY HUNT V significant ST-segment abnormalities or T-wave inversions. ASSESSMENT AND PLAN: This is a 56-year-old male, who is critically ill, and will be admitted to the hospital with: 1. Acute hypoxic respiratory failure. The underlying etiology for this is either a severe pneumonia versus possible acute congestive heart failure versus combination of both. We will continue the patient on BiPAP in the intensive care unit. We will maintain his saturation. we will pursue the underlying causes for his presentation. 2. Severe sepsis due to pneumonia. We will put the patient on broad- spectrum antibiotics. We will follow blood cultures. Given the concern for possible overlapping heart failure, we will be more cautious with fluids, but we will try and hydrate him gently. 3. Suspected acute congestive heart failure. We will get an echocardiogram. 4. Troponin elevation. I have requested a Cardiology consultation and discussed the case with Dr. Moody. At this point, there are no plans for cardiac catheterization, and we feel that the possibility of acute coronary syndrome is low. We will continue trending his cardiac enzymes. 5. Hyperkalemia. We will gently treat him with insulin and follow his potassiums. 6. D-dimer elevation. At this point, we have a pretty good underlying etiology for this patient's hypoxia (CHF vs PNA) and we will consider anticoagulation and eventual imaging to rule out pulmonary embolism, though at this point, probability is intermediate. 7. Stage IV lung cancer. We will request a courtesy consult from Dr. Santana. 8. Goals of care. At this point, the patient requested to remain a full code. Given this acute presentation, we will keep him full code and admit him to the ICU. We will defer additional conversations to Oncology and primary team. Additional management will depend on clinical course. A total critical care time dedicated to this admission is 65 minutes. MD VU AGUILERA/sushilal /[id number] D: [id number] HISTORY & PHYSICAL
[~2017-02-05 10:44] MED LIST changes: -DELTASONE10 MG PO; -FLORASTOR250 MG PO; -HYDROCORTISONE10 MG; -IMODIUM A-D2 MG PO; -LASIX40 MG PO; -ZESTRIL5 MG PO
[2017-02-05 11:16] LABS: HEMATOCRIT 28.2 % (37.0-53.0); HEMOGLOBIN 8.3 g/dL (12.0-17.0); MCH 28.4 pg (27.0-34.0); MCHC 29.4 gm/dL (32.0-36.5); MCV 96.6 fl (83.0-98.0); MPV 9.8 fl (9.4-12.4); PLATELET COUNT 666 K/uL (150-450); RBC 2.92 M/uL (4.00-6.00); RDW-CV 19.6 % (11.9-14.6)
[2017-02-05 11:17] LABS: WBC 28.5 K/uL (4.0-11.0)
[2017-02-05 11:21] LABS: PROTIME 10.4 SECONDS (9.6-11.1); PTT 27 SECONDS (25-32)
[2017-02-05 11:34] LABS: BICARBONATE 16.3 mmol/L (18.0-23.0); LACTATE 3.9 mEq/L (0.50-1.60); PCO2 31 mmHg (35-45); PO2 172 mmHg (80-90)
[2017-02-05 11:47] LABS: ALBUMIN 2.4 gm/dL (3.5-5.0); CALCIUM 7.7 mg/dL (8.5-10.5); CREATININE 1.6 mg/dL (0.6-1.3); POTASSIUM 5.3 mMol/L (3.7-5.1); TOTAL BILIRUBIN 0.6 mg/dL (0.0-1.5); TOTAL PROTEIN 6.3 g/dL (6.0-8.4)
[2017-02-05 11:50] LABS: ANION GAP 20.3 (10.0-19.0)
[2017-02-05 11:53] LABS: ABSOLUTE NEUTROPHIL CT (ANC) 19.7 K/uL (1.4-9.0); BANDED NEUTROPHIL # 0.6 K/uL (0.0-0.1); BANDED NEUTROPHILS % 2 %; LYMPHOCYTE # 6.6 K/uL (0.8-4.0); LYMPHOCYTE % 23 %; MONOCYTE # 1.7 K/uL (0.0-1.0); SEGMENTED NEUTROPHIL # 19.1 K/uL (1.4-9.0); SEGMENTED NEUTROPHIL % 67 %
[2017-02-05] MEDS ORDERED: HYDROCORTISONE10 MG (15:35)
[2017-02-05] MEDS ORDERED: IMODIUM A-D2 MG PO (15:38)
[2017-02-05 17:13] LABS: BILIRUBIN URINE NEGATIVE (NEGATIVE); BLOOD URINE 10 /UL (NEGATIVE); COLOR URINE YELLOW (YELLOW); GLUCOSE URINE NEGATIVE (NEGATIVE); KETONE URINE NEGATIVE (NEGATIVE); LEUKOCYTES URINE NEGATIVE /UL (NEGATIVE); NITRITE URINE NEGATIVE (NEGATIVE); PROTEIN URINE NEGATIVE (NEGATIVE); SPEC GRAVITY URINE 1.015 (1.003-1.035); TURBIDITY URINE CLEAR (CLEAR); UROBILINOGEN URINE NORMAL (NORMAL)
[2017-02-05 17:21] LABS: BACTERIA URINE FEW (NEGATIVE); EPITHELIAL URINE NEGATIVE #/HPF (NEGATIVE); WBC URINE NEGATIVE #/HPF (NEGATIVE)
--- NOTE | 2017-02-05 17:27 | NUR ---
SIGNIFICANT EVENT: PATIENT ARRIVED TO ICU AT 1500 AND WENT FOR AN EMERGENT HEART CATH BY DR MENDES AT 1615. PATIENT WAS ALERT AND ORIENTED X3 FOR THE DURATION OF ICU STAY. WAS CALM AND COOPERATING, FOLLOWING ALL COMMANDS. APPROPRIATELY CONVERSATIONAL. MOVED ALL 4 EXTREMITIES. DENIED AND NUMBNESS, TINGLING, OR PAIN. MADE ALL NEEDS KNOWN. PATIENT HAD AN EKG, SHOWED SINUS RHYTHM WITH DEPRESSED ST. BP STABLE, SBP 90-110S, MAP>65. PULSES PALPABLE THROUGHOUT. AFEBRILE. ON HEPARIN DRIP INFUSING THROUGH R) CHEST PORT. CARDIAC ENZYMES HIGHLY ELEVATED, REPORTED TO MD. PATIENT WAS WEANED TO 4L NASAL CANNULA, SATS >95%. BOWEL SOUNDS PRESENT, HYPOACTIVE. PENA CATHETER INSERTED RIGHT PRIOR TO TRANSFER TO PERSONAL SECURITY SPECIALIST. L) HAND PIV INSERTED. ZOSYN, HEPARIN, AND VANCO INFUSING PRIOR TO TRANSFER TO PERSONAL SECURITY SPECIALIST. FAMILY NOTIFIED AND CONSENTED TO PERSONAL SECURITY SPECIALIST FOLLOW UP: CONTINUE TO MONITOR. FOLLOW UP WITH ADVANCE DIRECTIVE
[2017-02-05 19:57] LABS: CREATININE 1.4 mg/dL (0.6-1.3)
[2017-02-05 19:59] LABS: CALCIUM 7.4 mg/dL (8.5-10.5)
--- NOTE | 2017-02-06 04:31 | NUR ---
SIGNIFICANT EVENT: PT BECAME HYPOTENSIVE AT APPROXIMATELY 2130, DR. MENDES INCREASED IVF. THIS DID NOT IMPROVE BP, DOBUTAMINE STARTED AT 5MCG/KG/MIN. BP IMPROVED AFTER THIS. UOP REMAINED >50ML/HR THROUGHOUT SHIFT. PT DENIES SOB OR CHEST PAIN. NO NOTED EKG CHANGES THROUGHOUT SHIFT. FOLLOW UP:
[2017-02-06 06:25] LABS: ANION GAP 17.5 (10.0-19.0); CREATININE 1.4 mg/dL (0.6-1.3); POTASSIUM 4.5 mMol/L (3.7-5.1); TOTAL PROTEIN 5.1 g/dL (6.0-8.4)
[2017-02-06 06:26] LABS: CALCIUM 7.4 mg/dL (8.5-10.5); TOTAL BILIRUBIN 0.3 mg/dL (0.0-1.5)
[2017-02-06 06:27] LABS: HEMATOCRIT 20.5 % (37.0-53.0); HEMOGLOBIN 6.1 g/dL (12.0-17.0)
[2017-02-06 07:12] LABS: HEMATOCRIT 20.8 % (37.0-53.0)
[2017-02-06 07:15] LABS: HEMOGLOBIN 6.1 g/dL (12.0-17.0)
[2017-02-06 12:20] LABS: HEMATOCRIT 25.8 % (37.0-53.0); HEMOGLOBIN 8.1 g/dL (12.0-17.0)
--- NOTE | 2017-02-06 15:44 | NUR ---
Significant Events: Patient oriented x3, denies N/T or pain. SR with HR 90s, SBP stable. Did transfuse 2 units PRBCs for HGB 6.1, recheck HGB 8.1. Remains on room air, lungs clear on the right, diminished on the left. Does have increased SOB with exertion. Appetite poor, did request Ensure for breakfast and lunch. Taylor d/c'd. No BM, bowels active. IVF d/c'd. Follow up: Transfer to PCU
[2017-02-07 04:20] LABS: ANION GAP 17.7 (10.0-19.0); CALCIUM 7.8 mg/dL (8.5-10.5); CREATININE 1.4 mg/dL (0.6-1.3); MAGNESIUM 1.8 mg/dL (1.3-2.6); POTASSIUM 3.7 mMol/L (3.7-5.1)
[2017-02-07 04:25] LABS: HEMATOCRIT 26.7 % (37.0-53.0); HEMOGLOBIN 8.6 g/dL (12.0-17.0); MCH 28.9 pg (27.0-34.0); MCHC 32.2 gm/dL (32.0-36.5); MPV 10.2 fl (9.4-12.4); RBC 2.98 M/uL (4.00-6.00); RDW-CV 19.1 % (11.9-14.6); WBC 15.6 K/uL (4.0-11.0)
[2017-02-07 04:28] LABS: MCV 89.6 fl (83.0-98.0); PLATELET COUNT 234 K/uL (150-450)
[2017-02-07 04:47] LABS: ABSOLUTE NEUTROPHIL CT (ANC) 14.7 K/uL (1.4-9.0); BANDED NEUTROPHIL # 0.8 K/uL (0.0-0.1); BANDED NEUTROPHILS % 5 %; LYMPHOCYTE # 0.6 K/uL (0.8-4.0); LYMPHOCYTE % 4 %; MONOCYTE # 0.3 K/uL (0.0-1.0); SEGMENTED NEUTROPHIL # 13.9 K/uL (1.4-9.0); SEGMENTED NEUTROPHIL % 89 %
--- NOTE | 2017-02-07 07:03 | NUR ---
Significant Event: Patient alert and oriented x3. Vital signs stable. On RA. No complaints of pain this shift. Up with 1 assist. Voids per urinal. 1700ml uop. Rt Chest Port and Lf PIV saline locked. Metoprolol D/C'd and Toprol XL added per Dr. Canales. Calm and coopertive with all cares. Follow up: PT to see today. Continue IV antibiotics.
--- NOTE | 2017-02-07 15:48 | NUR ---
Significant event: Alert. Oriented x3. On room air when awake, when napping O2 sats do dip down to 88%, so patient given 1 L when sleeping. During 1st assessment patient had inspiratory wheezes to RML/RLL. Lung sounds have since been clear/diminished in R) lung and Diminished in L) lung. No edema. Now on 2 L fluid restriction, has only had 600 ml PO intake. PT in to work with patient. Had BM this shift. Follow Up: Continue current POC.
--- NOTE | 2017-02-08 05:25 | NUR ---
Significant Event: Patient alert and oriented x3. SBP 117-137. RA-1L for de-sats to 87% with sleep. All other vital signs stable. Lung sounds range from C/D throughout to Diminished on left side. 2000ml fluid restriction continues. Patient tolerates very well. BM x1 this shift. 1250ml uop. Up with stand-by assist, walker, and gait belt in room. Right chest port had no blood return when nurse attempted to obtain morning labs. Had good blood return earlier in shift. No complaints of pain. Patient calm and cooperative with all cares. Follow up: Labs this morning. PT to work with patient. Will continue to monitor per plan of care.
[2017-02-08 05:28] LABS: HEMATOCRIT 27.9 % (37.0-53.0); IMMATURE GRANULOCYTE # 0.1 K/uL (0.0-0.3); IMMATURE GRANULOCYTE % 0.9 %; LYMPHOCYTE # 0.5 K/uL (0.8-4.0); LYMPHOCYTE % 4.5 %; MCH 29.2 pg (27.0-34.0); MCHC 32.3 gm/dL (32.0-36.5); MCV 90.6 fl (83.0-98.0); MONOCYTE # 0.6 K/uL (0.0-1.0); MPV 9.5 fl (9.4-12.4); NEUTROPHIL # (ANC) 10.1 K/uL (1.4-9.0); NEUTROPHIL % 89.6 %; NRBC % 0.2 /100WBC (0-0.00); PLATELET COUNT 209 K/uL (150-450); RBC 3.08 M/uL (4.00-6.00); RDW-CV 19.9 % (11.9-14.6); WBC 11.2 K/uL (4.0-11.0)
[2017-02-08 05:47] LABS: ANION GAP 14.5 (10.0-19.0); CALCIUM 7.6 mg/dL (8.5-10.5); CREATININE 1.5 mg/dL (0.6-1.3); MAGNESIUM 1.4 mg/dL (1.3-2.6); POTASSIUM 3.5 mMol/L (3.7-5.1)
--- NOTE | 2017-02-08 14:52 | NUR ---
Introduced self and role of care management to pt. 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 He does live alone and his ex checks on him and a daughter who is still in high school. He plans on home tomorrow and at this time denies any post discharge needs. He plans on home and maybe looking at tomorrow.
--- NOTE | 2017-02-08 16:15 | NUR ---
Significant Event: Patient alert and oriented x 3. SBA up in halls, tolerating activity well. Sats upper 90's on RA. Denies pain. VSS. Cefepime discontinued. Lifevest ordered. Lung's clear and dimininished. BM today. Urine output 2000 mL. Port re-accessed, has good blood return but is positional. Follow up: Needs fitted for lifevest prior to DC. Discharge in 1-2 days?
[2017-02-09 03:32] LABS: ALBUMIN 2.1 gm/dL (3.5-5.0); ANION GAP 15.5 (10.0-19.0); CALCIUM 7.5 mg/dL (8.5-10.5); CREATININE 1.3 mg/dL (0.6-1.3); POTASSIUM 3.5 mMol/L (3.7-5.1); TOTAL BILIRUBIN 0.3 mg/dL (0.0-1.5); TOTAL PROTEIN 5.3 g/dL (6.0-8.4)
--- NOTE | 2017-02-09 04:30 | NUR ---
Significant Event: A/O x3. Afebrile. Denies pain. VSS on RA. Life vest fitted tonight and patient educated. Tubigrips removed for night. Standby assist. Cooperative with cares. Follow up: Continue to monitor per plan of care.
--- NOTE | 2017-02-09 09:19 | NUR ---
A - NUTRITION F/U. LABS: K+ 3.5, GLU 100, BUN/PRINTER'S DEVIL 32/1.3, ALB 2.1. DIET: 2-3 GM NA+ W/ 2000 ML FLUID RESTRICTION. PT REFUSES LUNCH; BF AND DINNER INTAKE 25-75%. PT TAKES 2 ENSURE DAILY (700 KCALS, 26 GM PROTEIN). D - AT RISK W/ INADEQUATE MEAL INTAKE R/T DECREASED APPETITE AEB INTAKE RECORD. I - GOAL: 50-75% MEAL INTAKE X 2, CONT ENSURE INTAKE. M/E - F/U IN 3-5 DAYS.
[2017-02-09] MEDS ORDERED: LASIX40 MG PO (11:35)
[2017-02-09] MEDS ORDERED: ZESTRIL5 MG PO (11:37)
[2017-02-09] MEDS ORDERED: DELTASONE10 MG PO (11:46)
[2017-02-09] MEDS ORDERED: FLORASTOR250 MG PO (11:52)
--- NOTE | 2017-02-09 13:32 | NUR ---
D/C ORDERS RECIEVED. REVIEWED WITH THE PATIENT ALL D/C INFORMATION INCLUDING MEDICATIONS, FOLLOW-UP APPTS-SCHEDULED FOR HIM, INSTRUCTIONS, AND CARES. PIV D/C'D-CATHETER INTACT AND PORT DE-ACCESSED PER PROTOCOL, NEEDLE INTACT. RIGOBERTO PRINTOUTS GIVEN ON ALL NEW MEDICATIONS, CHF TEACHING/INSTRUCTIONS, POST RADIAL ACCESS SITE CARES, AND SEPSIS INFORMATION. CHF TEACHING WAS DONE AND CALENDAR GIVEN. LIFE VEST IS IN PLACE AND PATIENT WAS SENT HOME WITH ALL NECESSARY EQUIPMENT. ALL HOME MED BOTTLES WERE SENT WITH THE PATIENT. HE WILL FOLLOW-UP WITH DR. MORSE REGARDING FLU AND PNEUMONIA SHOTS PER HIS REQUEST. TAKEN VIA W/C AND TRANSPORT TEAM TO THE FRONT ENTRANCE OF THE HOSPITAL AND HIS FAMILY TO DRIVE HIM HOME.
--- NOTE | 2017-02-18 16:12 | NUR ---
Post hospitalization follow up call made to patient. He asked me to call him the following day, which I did but there was no answer. Attempted to call today with no answer.
== END 2017-02-09 13:55 | disposition disaster alternative care site (69) | DRG 246 ==
LOC: GMED 10:44 → GICU 12:57 → GPCU 12:57
PROVIDERS: Emergency Medicine; Hospitalist; Internal Medicine Interventional Cardiology; ADMIT Internal Medicine
PROC: 027036Z Dilation of Coronary Artery, One Artery with Three Drug-eluting Intraluminal Devices, Percutaneous Approach (ICD-10-PCS; principal; 2017-02-05)
PROC: B2111ZZ Fluoroscopy of Multiple Coronary Arteries using Low Osmolar Contrast (ICD-10-PCS; principal; 2017-02-05)
PROC: 30233N1 Transfusion of Nonautologous Red Blood Cells into Peripheral Vein, Percutaneous Approach (ICD-10-PCS; 2017-02-06)
DX: I21.4 Non-ST elevation (NSTEMI) myocardial infarction (principal); J96.01 Acute respiratory failure with hypoxia; I50.21 Acute systolic (congestive) heart failure; N17.9 Acute kidney failure, unspecified; E87.5 Hyperkalemia; N18.3 Chronic kidney disease, stage 3 (moderate); D64.81 Anemia due to antineoplastic chemotherapy; C34.12 Malignant neoplasm of upper lobe, left bronchus or lung; I25.10 Atherosclerotic heart disease of native coronary artery without angina pectoris; Z95.5 Presence of coronary angioplasty implant and graft; Z87.891 Personal history of nicotine dependence; Z79.82 Long term (current) use of aspirin; E78.00 Pure hypercholesterolemia, unspecified; I12.9 Hypertensive chronic kidney disease with stage 1 through stage 4 chronic kidney disease, or unspecified chronic kidney disease; I25.2 Old myocardial infarction; Z92.21 Personal history of antineoplastic chemotherapy; Z23 Encounter for immunization; D47.3 Essential (hemorrhagic) thrombocythemia; I25.5 Ischemic cardiomyopathy; E87.6 Hypokalemia
CPT/HCPCS: C1725; C1769; C1874; C1887; C8929; C9113; C9606; J0692; J1250; J1642; J1644; J1720; J1956; J2250; J2370; J2543; J2930; J2997; J3010; J3370; J7030; J7040; J7050; J7512; P9016; Q4081; Q9957

== ENCOUNTER → 2017-02-05 | Outpatient (CLI) | payer BC ==
[~2017-02-05] MED LIST: ASPIRIN LO-DOSE81 MG PO; BRILINTA90 MG PO; COMPAZINE10 MG; DECADRON1 MG; DECADRON4 MG PO; DELTASONE10 MG PO; DOXYCYCLINE HY100 MG PO; DOXYCYCLINE100 MG; DOXYCYCLINE100 MG PO; FLORASTOR250 MG PO; HYDROCORTISONE10 MG; IMODIUM A-D2 MG PO; LASIX40 MG PO; LEVAQUIN500 MG PO; LIPITOR80 MG PO; LOPRESSOR25 MG PO; MAGNESIUM400 M1 PO; OXYCODONE HCL10 MG; PRINIVIL OR ZES10 MG PO; ROXICODONE 5MG (5 MG PO; VASOTEC2.5 M1 PO; VASOTEC2.5 MG PO; ZESTRIL5 MG PO
== END | disposition disaster alternative care site (69) ==
LOC: GAMB 10:21
DX: R06.9 Unspecified abnormalities of breathing (principal); R06.00 Dyspnea, unspecified; R06.02 Shortness of breath; Z85.118 Personal history of other malignant neoplasm of bronchus and lung; Z79.2 Long term (current) use of antibiotics; Z79.52 Long term (current) use of systemic steroids; Z79.891 Long term (current) use of opiate analgesic; Z79.82 Long term (current) use of aspirin; Z79.899 Other long term (current) drug therapy
CPT/HCPCS: A0422; A0425; A0427; J7030

== ENCOUNTER → 2017-02-23 | Outpatient (CLI) | payer BC ==
[~2017-02-23] MED LIST changes: +DELTASONE10 MG PO; +FLORASTOR250 MG PO; +HYDROCORTISONE10 MG; +IMODIUM A-D2 MG PO; +LASIX40 MG PO; +ZESTRIL5 MG PO
[2017-02-23 14:06] LABS: ALBUMIN 3.3 gm/dL (3.5-5.0); ANION GAP 13.4 (10.0-19.0); CALCIUM 8.5 mg/dL (8.5-10.5); CREATININE 1.6 mg/dL (0.6-1.3); POTASSIUM 4.4 mMol/L (3.7-5.1)
[2017-02-23 14:07] LABS: TOTAL BILIRUBIN 0.7 mg/dL (0.0-1.5)
== END | disposition disaster alternative care site (69) ==
LOC: LNHI 13:45
PROVIDERS: Internal Medicine Interventional Cardiology
DX: I25.10 Atherosclerotic heart disease of native coronary artery without angina pectoris (principal); I95.9 Hypotension, unspecified

== ENCOUNTER → 2017-03-18 | Outpatient (CLI) | payer OTHER | END | disposition disaster alternative care site (69) | LOC: GRAD 13:49 | DX: C34.12 Malignant neoplasm of upper lobe, left bronchus or lung (principal); D64.81 Anemia due to antineoplastic chemotherapy; E83.42 Hypomagnesemia; E87.5 Hyperkalemia; E27.40 Unspecified adrenocortical insufficiency; G62.0 Drug-induced polyneuropathy; I21.4 Non-ST elevation (NSTEMI) myocardial infarction; J98.4 Other disorders of lung ==

== ENCOUNTER → 2017-05-12 | Outpatient (CLI) | payer OTHER ==
[2017-05-12 16:57] LABS: BASOPHIL % 0.4 %; EOSINOPHIL # 0.2 K/uL (0.0-0.5); EOSINOPHIL % 1.5 %; HEMATOCRIT 28.9 % (37.0-53.0); HEMOGLOBIN 9.3 g/dL (12.0-17.0); IMMATURE GRANULOCYTE # 0.1 K/uL (0.0-0.3); IMMATURE GRANULOCYTE % 0.5 %; LYMPHOCYTE # 1.2 K/uL (0.8-4.0); LYMPHOCYTE % 12.4 %; MCH 30.7 pg (27.0-34.0); MCHC 32.2 gm/dL (32.0-36.5); MONOCYTE # 0.7 K/uL (0.0-1.0); MONOCYTE % 7.1 %; NEUTROPHIL # (ANC) 7.8 K/uL (1.4-9.0); NEUTROPHIL % 78.1 %; NRBC % 0 /100WBC (0-0.00); PLATELET COUNT 232 K/uL (150-450); RBC 3.03 M/uL (4.00-6.00)
[2017-05-12 17:02] LABS: MCV 95.4 fl (83.0-98.0); RDW-CV 17.4 % (11.9-14.6)
[2017-05-12 17:15] LABS: ALBUMIN 3.5 gm/dL (3.5-5.0); ANION GAP 11.2 (10.0-19.0); CALCIUM 8.7 mg/dL (8.5-10.5); CREATININE 1.7 mg/dL (0.6-1.3); POTASSIUM 4.2 mMol/L (3.7-5.1); TOTAL BILIRUBIN 0.8 mg/dL (0.0-1.5); TOTAL PROTEIN 6.9 g/dL (6.0-8.4)
== END | disposition disaster alternative care site (69) ==
LOC: LNHI 16:43
PROVIDERS: Internal Medicine Interventional Cardiology
DX: I25.10 Atherosclerotic heart disease of native coronary artery without angina pectoris (principal); I50.42 Chronic combined systolic (congestive) and diastolic (congestive) heart failure; I95.9 Hypotension, unspecified

== ENCOUNTER → 2017-05-13 | Outpatient (CLI) | payer OTHER ==
[2017-05-13 16:06] LABS: ANION GAP 9.8 (10.0-19.0); BLOOD UREA NITROGEN 34 mg/dL (6-24); CHLORIDE 105 mMol/L (96-110); CO2 29 mMol/L (22-32); CPK 71 IU/L (35-332); CREATININE 1.7 mg/dL (0.6-1.3); ESTIMATED GFR (MDRD EQUATION) 42; POTASSIUM 3.8 mMol/L (3.7-5.1); SODIUM 140 mMol/L (135-145)
== END | disposition disaster alternative care site (69) ==
LOC: LNHI 15:47
PROVIDERS: Internal Medicine Interventional Cardiology
DX: I25.10 Atherosclerotic heart disease of native coronary artery without angina pectoris (principal); I50.42 Chronic combined systolic (congestive) and diastolic (congestive) heart failure; R07.89 Other chest pain

== ENCOUNTER → 2017-06-01 | Outpatient (CLI) | payer OTHER ==
[2017-06-01 17:23] LABS: ANION GAP 10.5 (10.0-19.0); CALCIUM 8.5 mg/dL (8.5-10.5); CREATININE 1.6 mg/dL (0.6-1.3); POTASSIUM 4.5 mMol/L (3.7-5.1)
== END | disposition disaster alternative care site (69) ==
LOC: LNHI 16:45
PROVIDERS: Internal Medicine Interventional Cardiology
DX: I50.32 Chronic diastolic (congestive) heart failure (principal); I25.10 Atherosclerotic heart disease of native coronary artery without angina pectoris; I95.9 Hypotension, unspecified

== ENCOUNTER → 2017-07-01 | Outpatient (CLI) | payer OTHER | END | disposition disaster alternative care site (69) | LOC: GRAD 12:48 | DX: C34.12 Malignant neoplasm of upper lobe, left bronchus or lung (principal); R91.8 Other nonspecific abnormal finding of lung field; D64.81 Anemia due to antineoplastic chemotherapy; E83.42 Hypomagnesemia; E87.5 Hyperkalemia; E27.40 Unspecified adrenocortical insufficiency; G62.0 Drug-induced polyneuropathy; I21.4 Non-ST elevation (NSTEMI) myocardial infarction ==